=== PATIENT | female | born 1930 | race Caucasian/White ===

== ENCOUNTER 2017-01-17 11:54 | Inpatient (IN) | payer MEDICARE, MEDICAID ==
[~2017-01-17] VITALS: Ht 154.9 cm; Wt 58.6 kg
[2017-01-17] MEDS ORDERED: MIRC30SO IVP (12:58)
[2017-01-17] MEDS ORDERED: SEVE40CA PO ×2 (12:58→16:44)
[2017-01-17] MEDS ORDERED: LACT3000 PO ×2 (12:58→16:44)
[2017-01-17] MEDS ORDERED: LOMO2.5T PO ×2 (12:58→16:44)
[2017-01-17] MEDS ORDERED: STOO100C PO (12:58)
[2017-01-17] MEDS ORDERED: ZOFR4TAB3 PO (12:58)
[2017-01-17] MEDS ORDERED: LISI10TA4 PO ×2 (12:58→16:44)
[2017-01-17] MEDS ORDERED: MEGE20TA3 PO ×2 (12:58→16:44)
[2017-01-17] MEDS ORDERED: OXYC1TAB23 PO (12:58)
[2017-01-17] MEDS ORDERED: GLYC3350 PO (12:58)
[2017-01-17] MEDS ORDERED: RANI1TAB6 PO (12:58)
[2017-01-17] MEDS ORDERED: FLUTISP (12:58)
[2017-01-17] MEDS ORDERED: ECOT81TA5 PO (12:58)
[2017-01-17] MEDS ORDERED: VITA-115 PO (12:58)
[2017-01-17] MEDS ORDERED: KEFL500C17 PO (12:58)
[2017-01-17 14:22] LABS: BASO % 0.3 % (0.0-1.0); EOS % 0.1 % (0.0-3.0); IMMATURE GRANULOCYTE % 1.8 % (0-0); LYMPH # 0.6 10^3/uL (1.5-4.5); LYMPH % 5.4 % (24.0-44.0); MEAN CORPUSCULAR HEMOGLOBIN 30.8 pg (27.0-33.0); MEAN CORPUSCULAR HGB CONC 32.4 g/dl (32.0-36.5); MEAN CORPUSCULAR VOLUME 94.9 fl (80.0-96.0); MONO % 9.1 % (0.0-5.0); NEUTROPHILS # 9.2 10^3/uL (1.8-7.7); NEUTROPHILS % 83.3 % (36.0-66.0); PLATELET COUNT, AUTOMATED 277 10^3/uL (150-450); RED CELL DISTRIBUTION WIDTH 15.5 % (11.5-14.5)
[2017-01-17 14:32] LABS: INR 1.07
[2017-01-17 15:00] LABS: ALBUMIN 3.5 GM/DL (3.2-5.2); ALBUMIN/GLOBULIN RATIO 0.95 (1.00-1.93); BILIRUBIN,DIRECT 0.6 MG/DL (0.0-0.2); BILIRUBIN,TOTAL 1.2 MG/DL (0.2-1.0); CALCIUM LEVEL 9.5 MG/DL (8.8-10.2); CREATININE FOR GFR 5.54 MG/DL (0.55-1.02); GLOMERULAR FILTRATION RATE 7.8 (>32); THYROXINE (T4) 10.1 UG/DL (4.5-12.0); TOTAL PROTEIN 7.2 GM/DL (6.4-8.2)
[2017-01-17 15:15] LABS: POTASSIUM SERUM 5.2 MEQ/L (3.5-5.1)
[2017-01-17] MEDS ORDERED: MEROPENEM INJ 1 GM in D5W MINI-BAG PLUS 100 ML IV ONE (15:30)
[2017-01-17] MEDS ORDERED: methylPREDNISolone INJ 125 MG/2 ML VIAL (J2930) IV ONE (15:30)
[2017-01-17] MEDS ORDERED: COLA100C5 PO (16:44)
[2017-01-17] MEDS ORDERED: VITA-112 PO (16:44)
[2017-01-17] MEDS ORDERED: MIRA3350 PO (16:44)
[2017-01-17] MEDS ORDERED: FLON1SPR (16:44)
[2017-01-17] MEDS ORDERED: RANI150T PO (16:44)
[2017-01-17] MEDS ORDERED: [UNRECOGNIZED DRUG - CODE] IV (16:44)
[2017-01-17] MEDS ORDERED: ASPI1TAB PO (16:44)
[2017-01-17] MEDS ORDERED: ONDA4TAB6 PO (16:44)
[2017-01-17] MEDS ORDERED: PERC5TAB12 PO (16:46)
[2017-01-17] MEDS ORDERED: HEPARIN 1,000 UNITS/ML 10ML VIAL (FOR RADIOLOGY& DIALYSIS ONLY) IV ONE (18:30)
--- NOTE | 2017-01-17 19:27 | ECGEPIP ---
Stationary ECG Study [facility] - ED Test Date: 2017-01-17 Pat Name: SHELBY LORENZANA Department: Room: - Gender: F Board Turner: MARIANA : 1930 Requested By: TAMANNA HARO Order Number: [id number] Reading MD: Jh Phipps Measurements Intervals [place] Rate: 100 P: 1 ND: 169 QRS: -22 QRSD: 84 T: -21 QT: 335 QTc: 433 Interpretive Statements SINUS TACHYCARDIA LEFTWARD AXIS POSSIBLE ANTERIOR MYOCARDIAL INFARCTION, OF INDETERMINATE AGE NONSPECIFIC ST T WAVE CHANGES - INFERIOR/ANTEROSEPTAL - RULE OUT ISCHEMIA NO OLD ECG FOR COMPARISON Electronically Signed On 01-17-2017 19:27:03 EST by Jh Phipps
[2017-01-17] MEDS ORDERED: MEROPENEM INJ 1 GM in D5W MINI-BAG PLUS 100 ML IV SCH (23:30)
[2017-01-18 00:17] VITALS: BP 150/81
[2017-01-18 06:00] VITALS: BP 157/77
[2017-01-18 06:14] LABS: MEAN CORPUSCULAR HEMOGLOBIN 30.5 pg (27.0-33.0); MEAN CORPUSCULAR HGB CONC 32.6 g/dl (32.0-36.5); MEAN CORPUSCULAR VOLUME 93.7 fl (80.0-96.0); PLATELET COUNT, AUTOMATED 228 10^3/uL (150-450); RED CELL DISTRIBUTION WIDTH 15.6 % (11.5-14.5); WHITE BLOOD COUNT 5.7 10^3/uL (4.0-10.0)
--- NOTE | 2017-01-18 06:15 | REP ---
BILATERAL LOWER EXTREMITY DOPPLER VENOUS ULTRASOUND: Comparison: None. Clinical history: Lower extremity swelling, evaluate for DVT. Technique: The deep venous system of the bilateral lower extremities is evaluated with cloón scale imaging, compression ultrasound, color imaging and duplex Doppler interrogation. Examination from the groin through the popliteal fossa into the proximal calf. Findings: There is full compressibility from the common femoral vein in the inguinal region through the popliteal vein on both sides. Color imaging confirms patency throughout the course of the deep venous system. There is respiratory variation and augmented flow at all levels. Incidental note should be made of a duplicated left and mid femoral vein, an anatomic variation. Impression: 1. No Doppler venous ultrasound evidence of DVT in the bilateral lower extremities. Signed by Waldemar Garrett MD 01/17/2017 01:29 P
--- NOTE | 2017-01-18 06:16 | REP ---
CHEST, PA AND LATERAL: 01/17/2017. Clinical history: Dyspnea and cough. Findings: There are no comparison studies available at the time of this dictation. Lungs hypoinflated. Extensive interstitial markings throughout, heaviest in the left base above the diaphragm and in the perihilar regions in the right. There is fibrosis with superimposed atelectasis or infiltrate. These could certainly obscure nodules or mass, but in the setting of dyspnea and cough, pneumonitis must be suspected. There is one fairly dense nodule in the left mid lung zone and another adjacent to the hilum both suggesting granulomas. The aorta is calcified and tortuous. There are multiple left hilar granulomatous nodes evident. Heart size difficult to magistrate judge, but the left atrium is clearly enlarged with elevated mainstem bronchus. Low level of inflation noted with eventration of the diaphragms. No effusion on the lateral view. Bones severely demineralized with thoracic kyphosis and multiple wedge compression deformities and insufficiency fractures lower thoracic and mid thoracic region, poorly depicted because of the demineralization. Dextroconvex curvature on the frontal view. Impression: 1. Extensive interstitial lung changes, with heavier fibrotic changes in the bases, apical scarring, some old granulomatous disease but in the perihilar right mid lung zone superimposed atelectasis or infiltrate. I could not exclude pneumonitis. No gross effusion. Heart size difficult to magistrate judge but the left atrium is enlarged. There is a tortuous calcified aorta. Airway intact. 2. Demineralization with insufficiency fractures of multiple mid and lower thoracic vertebral levels and kyphosis. Signed by Waldemar Garrett MD 01/17/2017 07:19 P
--- NOTE | 2017-01-18 06:19 | HPE ---
DATE OF ADMISSION: 01/17/2017 CHIEF COMPLAINT: Generalized weakness. HISTORY OF PRESENT ILLNESS: The patient presented to the emergency department today via emergency medical services (EMS) for generalized weakness and feeling like she was going to fall at home. She states that this morning, the lady who comes to the assisted living facility where she resides arrived to give her communion and noticed that the patient was not able to rise out of bed. It was a joint decision to call EMS. The patient states that she started not really feeling very well while she was at dialysis on Wednesday, she started feeling an aching between her shoulder blades Wednesday night. She states that the pain between her shoulder blades would not go away, which added to her decision to come to the emergency department today. She was having some chest discomfort for the last 3-4 weeks in her midsternal area, but she thought this was from her hiatal hernia. She states that she has been having a cough on-and-off for a few weeks as well, with some phlegm but does not know the color because she has not bothered to look at it. She denies any hematemesis, fevers, chills, or night sweats. She states that she has had shortness of breath for about one week. She normally uses a walker to get around , but over the past week, she has not been able to get from her bed to the kitchen without becoming short of breath. The past 2-3 days, she has had shortness of breath at rest as well. The midsternal chest pain that she has been feeling is describes as more of a pressure, like something is sitting on her. She states that she is feeling lightheaded and weak right now, has had a decreased appetite , and has had one episode of loose stool due to taking her stool softener as she is normally constipated. REVIEW OF SYSTEMS: The patient denies problems swallowing, nausea, vomiting, numbness or tingling anywhere, fevers, chills, sweats, any recent changes in her weight, heat or cold intolerance, increased thirst, or new swelling. She states that she has no urinary symptoms because she is a dialysis patient. MEDICAL HISTORY: 1. 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 She sees Dr. Rodríguez for dialysis on Mondays, Wednesdays, and Fridays. 2. Hypertension. 3. Lumbar spinal stenosis with chronic back pain. 4. Diverticulosis. 5. Irritable bowel syndrome. 6. Shingles. MEDICATIONS: - vitamin D3 1000 units one tablet by mouth daily - Lactaid 3000 units by mouth as needed - fluticasone propionate 50 mcg/ACT suspension one spray in each nostril nasally once a day - Lomotil 2.5/0.025 mg tablet, two tablets by mouth every eight hours as needed - aspirin EC low dose 81 mg - megestrol acetate 20 mg tablet one half tablet by mouth daily for appetite - lisinopril 10 mg tablet once a day orally - Renagel 4000 mg tablets one tablet with meal by mouth three times a day - ranitidine HCl 150 mg capsule one capsule orally twice a day - MiraLAX powder 17 grams orally at bedtime - Percocet 5/325 mg tablet one-half tablet by mouth four times a day as needed, maximum daily dose of two tablets - Telma stool softener 100 mg capsules two capsules by mouth daily as needed - Zofran 4 mg tablet one tablet by mouth three times a day as needed SURGICAL HISTORY: 1. 1964, hysterectomy secondary to abnormal and heavy periods with exploratory abdominal surgery. 2. May 2011, right brachiocephalic arteriovenous (AV) fistula placed, colocutaneous fistula repair, and endoscopy/cautery for bleeding ulcer. 3. 2012, cataract surgery. 4. July 2015, fistula repair - three aneurysms. 5. December 28, endoscopy. HOSPITALIZATIONS: 1. In September 2010, for kidney failure. 2. In November 2010, hip fracture, stomach ulcer, left leg abscess, fistula repair, [facility] rehabilitation. 3. In March 2013, strained muscle left groin. ALLERGIES: 1. AVELOX (nausea). 2. BACTRIM DS (nausea and vomiting). 3. CEFTIN (nausea). 4. SULFATE (nausea and vomiting). 5. MORPHINE SULFATE (confusion). SOCIAL HISTORY: The patient is a former smoker, it has been greater than 10 years since her last cigarette. Denies recreational drug use, denies alcohol use, states that she has one cup of coffee daily. She is a retired press secretary. She is on a renal diet; [id number], low fat, low cholesterol, low phosphorus. The patient is single and lives at [facility] assisted living in [place]. Her healthcare proxy is Danuta Santamaria (niece), whose phone number is [phone]. The patient is a F[employer]. FAMILY HISTORY: Father from cardiac disease. Mother at 94 years, asthma and circulation problems. Siblings from chronic obstructive pulmonary disease (COPD) and cerebrovascular accident (CVA). PHYSICAL EXAMINATION: VITAL SIGNS: Temperature is 97.5, pulse is 100, respiratory rate is 18, blood pressure is 183/86, with a mean arterial pressure (MAP) of 118, pulse oximetry 95% on four liters of oxygen via nasal cannula. GENERAL: The patient is tired appearing but cooperative and responds to questions appropriately. She is hard of hearing. The patient did have conversational dyspnea. HEENT: Pupils equal, round, and reactive to light bilaterally. Mucous membranes are moist. There is no nasal turbinate erythema or exudates. Posterior pharynx is fee of erythema or exudates. NECK: Bilateral jugular venous distention (JVD) appreciated, no carotid bruits, supple and nontender. LUNGS: Diminished breath sounds appreciated bilaterally. No wheezing, rhonchi or rales. HEART: Mildly tachycardic, no murmurs, gallops, or rubs appreciated. ABDOMEN: Normal active bowel sounds appreciated, nontender to palpation, no organomegaly. EXTREMITIES: AV fistula noted on the right upper extremity, patent. Bilateral pedal edema is noted in the lower extremities. There is some mild tenderness to palpation along the anterior aspect of the shins. Good pulses are palpated in all four extremities. BACK: No costovertebral angle tenderness, straight, no abnormalities. LABORATORY DATA: CBC: White blood cells 11, hemoglobin 10.8, hematocrit 33.3, platelets 277, immature granulocyte 1.8, neutrophils 83.3, lymphocytes 5.4, monocytes 9.1. Chemistry: Sodium 137, potassium 5.2, chloride 99, carbon dioxide 25, BUN 64, creatinine 5.54, fasting glucose 114, lactic acid 2.8, calcium 9.5, total bilirubin 1.2, direct bilirubin 0.6, AST 62, al6 52, alkaline phosphatase 159, total creatine-kinase 62, CK-MB 2.8, CK-MB relative index 4.51, troponin 0.38. CRP 10.2, pro-BNP 95,445, total protein 7.2, albumin 3.5, TSH 3.18, T4 10.1. Coagulation: PT 14, INR 1.07. MICROBIOLOGY: Blood cultures pending. RSV negative. IMAGING: Bilateral Duplex ultrasound showed no Doppler venous ultrasound evidence of DVT in the bilateral lower extremities. Chest x-ray showed extensive interstitial lung changes, heavier fibrotic changes in the bases, apical scarring, old granulomatous disease, but in the perihilar right mid-lung zone superimposed atelectasis or infiltrate. Could not exclude pneumonitis. No gross effusion. Heart size was difficult to clearing inspector but the left atrium is enlarged. Tortuous calcified aorta. EKG: Sinus tachycardia with a rate of 100 beats per minute. Compared to EKG from 06/01/2011, no significant changes were noted. IMPRESSION: Ruthie Nelson is an 87-year-old female presenting to the emergency department for generalized weakness. Subsequently, she is found to be in heart failure with a pro-brain natriuretic peptide (pro-BNP) of 95,445. She is an end-stage renal disease patient who sees Dr. Rodríguez, who has already been consulted. We will be admitting to the medical/surgical floor and dialyzing her tonight. PLAN: 1. Suspected pneumonitis. With a white count of 11.0 and chest x-ray showing bilateral infiltrates, pneumonitis could not be excluded. We will be continuing her on meropenem 1 gram every eight hours for seven days. 2. End-stage renal disease. The patient is currently a patient of Dr. Rodríguez, and receives dialysis on Wednesday, Wednesday, and Wednesday. He has been consulted and will dialyze the patient tonight. 3. Heart failure. Her pro-BNP is 95,445. I have ordered an echocardiogram to distinguish what her ejection fraction is. This may be secondary to volume overload from her end-stage renal disease. 4. Hypertension, continue home medications. 5. Lumbar spinal stenosis with chronic back pain. Continue home medications. 6. Diverticulosis and irritable bowel syndrome. Will hold Lomotil and megestrol. My preceptor for this patient encounter was Dr. Landon Maddox. The preceptor was physically present in the building during the encounter and was fully available as needed. All aspects of the patient interview, examination, medical decision making process, and medical care plan development were reviewed and approved by the preceptor. The preceptor is aware and concurs with the plan as stated in the body of this note and will attest to such by his/her co-signature. MILAGROS
[2017-01-18 06:36] LABS: ALBUMIN 3.1 GM/DL (3.2-5.2); CALCIUM LEVEL 9.4 MG/DL (8.8-10.2); CREATININE FOR GFR 4.52 MG/DL (0.55-1.02); GLOMERULAR FILTRATION RATE 9.8 (>32); PHOSPHORUS LEVEL 6.3 MG/DL (2.5-4.9); POTASSIUM SERUM 4.9 MEQ/L (3.5-5.1)
[2017-01-18] MEDS: predniSONE 20 MG TAB PO SCH (08:09)
[2017-01-18] MEDS: ASPIRIN 81 MG ENTERIC TAB PO SCH ×2 (09:00→15:27)
[2017-01-18] MEDS: HEPARIN SOD (PORCINE) 5000 UNITS/ML VIAL SQ SCH ×2 (09:00→20:30)
[2017-01-18] MEDS: guaiFENesin ER 600 MG TAB PO SCH ×2 (09:00→20:30)
[2017-01-18] MEDS: VITAMIN D 1,000 INTERNATIONAL UNITS TABLET PO SCH ×2 (09:00→15:27)
[2017-01-18] MEDS ORDERED: FLUTICASONE PROP 0.05% NASAL SPRAY 16 GM (FLONASE) PRN (09:30)
[2017-01-18] MEDS ORDERED: DOCUSATE SODIUM 100 MG CAP PO PRN (09:30)
[2017-01-18] MEDS ORDERED: LOMOTIL 2.5MG/0.025MG TABLET PO PRN (09:30)
[2017-01-18] MEDS ORDERED: MIRALAX *UNIT DOSE* 17GM PACKET PO PRN (09:30)
--- NOTE | 2017-01-18 09:54 | IPNPDOC ---
Subjective Date Seen The patient was seen on 01/18/17. Subjective Chief Complaint/HPI The patient is a 87-year-old female admitted with a reason for visit of Esrd On Dialysis; Heart Failure. Events since last encounter Dialyzed with -2.5L yesterday. c/o leg and LBP due to sitting on monitor leads yesterday. continues with cough and mucous production, with difficulty expectorating. Constitutional: Denies: Chills, Fever, Night Sweats Skin: Denies: Rash, Lesions, Breakdown Pulmonary: Denies: Dyspnea, Cough Cardiovascular: Denies: Chest Pain, Palpitations, Orthopnea, Paroxysmal Noc. Dyspnea, Lt Headedness Gastrointestinal: Denies: Nausea, Vomiting, Abdominal Pain, Diarrhea, Constipation Genitourinary: Denies: Dysuria, Frequency, Incontinence, Retention Objective Physical Examination General Exam: Positive: Alert, No Acute Distress ENT Exam: Positive: Atraumatic, Mucous membr. moist/pink, Pharynx Normal Neck Exam: Positive: Supple, Negative: JVD, thyromegaly Chest Exam: Positive: Clear to auscultation, Normal air movement Heart Exam: Positive: Rate Normal, Regular Rhythm, Normal S1, Normal S2, Negative: Murmurs, Rubs Abdomen Exam: Positive: Normal bowel sounds, Soft, Negative: Tenderness, Hepatospenomegaly Extremity Exam: Positive: Edema (2+ boggy) Assessment /Plan Problems (1) Pneumonitis Status: Acute Problem Text: Received 1 dose of IV solumedrol. Now on Prednisone 40 mg po daily. Monitor. Add on Mucinex. (2) End stage renal disease on dialysis Status: Chronic Problem Text: Nephrology following and managing HD needs. (3) Hypoxia Status: Acute (4) Elevated brain natriuretic peptide (BNP) level Status: Acute Problem Text: In presence of BLE edema. Echo ordered. Plan/VTE VTE Prophylaxis Ordered?: Yes (Heparin) Plan Therapy: PT VS, I&O, 24H, Fishbone Vital Signs/I&O Vital Signs Date Time Temp Pulse Resp B/P (MAP) Pulse Ox O2 Delivery O2 Flow Rate FiO2 01/18/17 06:00 97.8 80 16 157/77 (103) 92 01/18/17 00:17 Nasal Cannula 2.0 I&O- Last 24 Hours up to 6 AM 01/19/17 06:00 Intake Total 240 ml Balance 240 ml Laboratory Data 24H LABS Laboratory Tests 2 01/17/17 13:53: Anion Gap 13, Glomerular Filtration Rate 7.8L, Calcium Level 9.5, Aspartate Amino Transf (AST/SGOT) 62H, Alanine Aminotransferase (ALT/SGPT) 52, Alkaline Phosphatase 169H, Total Bilirubin 1.2H, Direct Bilirubin 0.6H, Total Creatine Kinase 62, Creatine Kinase MB 2.8, Creatine Kinase MB Relative Index 4.51H, Troponin I 0.38H, C-Reactive Protein, Quantitative 10.20H, CK-Tnd-O-Type Natriuretic Peptide 24545R, Total Protein 7.2, Albumin 3.5, Albumin/Globulin Ratio 0.95L, Thyroid Stimulating Hormone (TSH) 3.180, Thyroxine (T4) 10.1 01/17/17 14:10: Lactic Acid Level 2.8*H 01/17/17 14:11: Immature Granulocyte % (Auto) 1.8H, White Blood Count 11.0H, Red Blood Count 3.51L, Hemoglobin 10.8L, Hematocrit 33.3L, Mean Corpuscular Volume 94.9, Mean Corpuscular Hemoglobin 30.8, Mean Corpuscular Hemoglobin Concent 32.4, Red Cell Distribution Width 15.5H, Platelet Count 277, Neutrophils (%) (Auto) 83.3H, Lymphocytes (%) (Auto) 5.4L, Monocytes (%) (Auto) 9.1H, Eosinophils (%) (Auto) 0.1, Basophils (%) (Auto) 0.3, Neutrophils # (Auto) 9.2H, Lymphocytes # (Auto) 0.6L, Monocytes # (Auto) 1.0H, Eosinophils # (Auto) 0.0, Basophils # (Auto) 0.0 , Immature Granulocyte # (Auto) 0.2H, Nucleated Red Blood Cells % (auto) 0.0, Prothrombin Time 14.0, Prothromb Time International Ratio 1.07 01/17/17 19:41: Lactic Acid Followup at 4 Hours 1.0 01/18/17 05:54: Nucleated Red Blood Cells % (auto) 0.0, Blood Urea Nitrogen 49H, Creatinine 4.52H, Sodium Level 138, Potassium Level 4.9, Chloride Level 100, Carbon Dioxide Level 28, Anion Gap 10, Glomerular Filtration Rate 9.8L, Calcium Level 9.4, Phosphorus Level 6.3H, Albumin 3.1L CBC/BMP Laboratory Tests 01/17/17 13:53 01/17/17 14:11 Red Blood Count 3.51 L, Mean Corpuscular Volume 94.9, Mean Corpuscular Hemoglobin 30.8, Mean Corpuscular Hemoglobin Concent 32.4, Red Cell Distribution Width 15.5 H, Neutrophils (%) (Auto) 83.3 H, Lymphocytes (%) (Auto ) 5.4 L, Monocytes (%) (Auto) 9.1 H, Eosinophils (%) (Auto) 0.1, Basophils (%) ( Auto) 0.3, Neutrophils # (Auto) 9.2 H, Lymphocytes # (Auto) 0.6 L, Monocytes # ( Auto) 1.0 H, Eosinophils # (Auto) 0.0, Basophils # (Auto) 0.0 01/18/17 05:54 Red Blood Count 3.31 L, Mean Corpuscular Volume 93.7, Mean Corpuscular Hemoglobin 30.5, Mean Corpuscular Hemoglobin Concent 32.6, Red Cell Distribution Width 15.6 H, Anion Gap 10 Microbiology Microbiology 01/17/17 Blood Culture, Received Pending 01/17/17 Blood Culture, Received Pending 01/17/17 Respiratory Virus Panel (PCR) (TD) - Final, Complete Theresa Hitchcock PASTORAL WORKER Jan 18, 2017 09:54
[2017-01-18] MEDS ORDERED: HEPARIN 1,000 UNITS/ML 10ML VIAL (FOR RADIOLOGY& DIALYSIS ONLY) IV ONE (12:15)
[2017-01-18] MEDS: SEVELAMER HYDROCHLORIDE 400 MG PO SCH ×2 (12:30→18:22)
[2017-01-18 14:30] VITALS: BP 130/63
--- NOTE | 2017-01-18 14:55 | CR ---
DATE OF CONSULTATION: 01/17/2017 NEPHROLOGY CONSULTATION: Landon Maddox MD. REASON FOR CONSULTATION: Pulmonary edema in this lady with end-stage renal disease. HISTORY OF PRESENT ILLNESS: Mrs. Nelson is 87-year-old female who is followed by Dr. Anthony on regular basis. She has multiple chronic medical problems including a history of end-stage renal disease. She was brought to the emergency room today due to not feeling well and shortness of breath. She also reported pain in retrosternal area. Initially, there was a question about possibility of a hiatal hernia versus pulmonary embolus. I discussed with the emergency room physician earlier who had expressed a need for CT angiogram, however, later changed their mind as her chest x-ray did show bilateral pulmonary infiltrates and possible pulmonary edema. A nephrology consultation was requested due to urgent need for dialysis. PAST MEDICAL AND SURGICAL HISTORY: Significant for 1. Hypertension. 2. Spinal stenosis. 3. Irritable bowel syndrome. 4. History of diverticulosis. 5. 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 6. Secondary hyperparathyroidism. 7. History of anemia due to end-stage renal disease. 8. Lactose intolerance. Past surgical history is significant for hysterectomy, exploratory laparotomy, right brachial cephalic arteriovenous (AV) fistula, pleural cutaneous fistula, which was repaired, endoscopic cautery for bleeding ulcer, left hip replacement, cataract surgery, history of a left hip decubitus ulcer. which has healed. MEDICATIONS: - Her current medications ordered are prednisone 40 mg daily and meropenem 500 mg every 24 hours. - She was given a dose of methylprednisone 125 mg in the emergency room. She also received a dose of meropenem 1 gram. Her home medications include the following: - aspirin 81 mg daily - vitamin D 1000 units daily - Lomotil one tablet as needed for diarrhea - Colace 100 mg as needed, constipation - Hectorol with hemodialysis - lisinopril 10 mg daily - lactase 3000 units three times a day as needed for lactose intolerance - Percocet as needed for severe pain - ranitidine 150 mg twice a day - Renagel 400 mg with meals ALLERGIES: The patient has multiple allergies which are recorded in her electronic chart. PERSONAL AND SOCIAL HISTORY: Patient has no history of smoking, alcohol or drug use. Family history is negative for end-stage renal disease. REVIEW OF SYSTEMS: She has not been feeling well for at least last several days. She denies any fever or chills. Ears, nose and throat are unremarkable. She denies any nosebleed. There is no headache or dizziness. Cardiovascular system is significant for significant dyspnea, particularly on exertion and also increased leg edema. She denies any diaphoresis but does report pressure in her chest. Respiratory system is significant for shortness of breath. There is no history of hemoptysis or pleuritic type chest pain. Gastrointestinal (GI) system is significant for decreased appetite and possible hiatal hernia. She denies any vomiting but does feel nauseated and has chronic problems with her lactose intolerance. Genitourinary () system is significant for end-stage renal disease. She denies any dysuria or hematuria. Musculoskeletal system is significant for chronic back pain with spinal stenosis and bilateral lower extremity edema. Endocrine system is significant for secondary hyperparathyroidism. She has no diabetes or thyroid problems. Hematological system is significant for chronic anemia. There is no history of easy bruising or excessive bleeding. Psychosocial system negative for depression or anxiety. Neurological system is negative for seizures. There is no history of stroke. Skin is negative for rash or ulcers. PHYSICAL EXAMINATION: Temperature 97.6 degrees Fahrenheit, heart rate 90 per minute and respiratory rate 20 per minute. Blood pressure 190/79 mmHg and oxygen saturation 94% on 4 liters oxygen. It is important to note that she does not use oxygen at home. Head is atraumatic. Neck is supple and jugular venous distention (JVD) is mildly elevated. There is no thyroid enlargement. Ears, nose and throat are unremarkable. Heart exam reveals a regular S1 and S1 with systolic murmur Grade 1/6. There is no pericardial friction rub. Lungs have bilateral rales. There is no wheezing. Abdomen is soft and nontender and without palpable organomegaly. Bowel sounds are normal. Extremities have no cyanosis or clubbing. Musculoskeletal system is significant for at least 2+ lower extremity edema. There is no edema on upper extremities. Neurologically, she is awake, alert and oriented times three. LABORATORY DATA: Her WBC count is 11.0, hemoglobin 10.8 and hematocrit 33.3. Platelets 277. Sodium 137 and potassium 5.2. BUN 64 and creatinine 5.54. Lactic acid 2.8. AST 62, ALT 52 and total bilirubin 1.2. Troponin is 0.38. A proBNP level 95,445. TSH level 3.18. Chest x-ray showed bilateral pulmonary infiltrates and interstitial edema. PROBLEMS: 1. Shortness of breath. Patient is volume overloaded, which is evidenced by peripheral edema and she reports that she did have her last dialysis on Wednesday. However, she did not feel well even on Wednesday. She reports no change in her dry weight recently. Today our plan is to perform urgent dialysis for at least 2 hours and try to remove about 2-2.5 liters of fluid. Further dialysis will be arranged again tomorrow morning. I have already called the dialysis nurse and emergent dialysis is being arranged for this evening. 2. Hyperkalemia. This is mild and likely to correct with hemodialysis. She does not need Kayexalate. 3. Lactic acidosis. This is most likely related to pulmonary edema and likely to improve once her volume status improves. She does not seem to have any evidence for sepsis. 4. End-stage renal disease. Patient is regularly dialyzed on Wednesday, Wednesday and Wednesday. She will have 2 hours of emergent dialysis today and then regular dialysis treatment tomorrow. 5. Uncontrolled hypertension. This is most likely related to volume overload and her respiratory distress. It is likely to improve with volume removal and hemodialysis. Her medications will be adjusted after correcting her volume status. 6. Anemia. Her anemia is mild and stable and does not need any intervention. 7. Chest discomfort. Most likely related to uncontrolled hypertension and pulmonary edema. We will see how she feels after she is dialyzed and volume corrected. I thank you for involving me in the care of Mrs. Nelson. I will follow her along with you.
[2017-01-18] MEDS: MEROPENEM INJ 500 MG in D5W MINI-BAG PLUS 100 ML IV SCH (18:38)
[2017-01-18] MEDS: LISINOPRIL 10 MG TAB PO SCH (20:30)
[2017-01-18 22:00] VITALS: BP 125/60
[2017-01-19 06:00] VITALS: BP 139/62
[2017-01-19 06:13] LABS: MEAN CORPUSCULAR HGB CONC 31.6 g/dl (32.0-36.5); MEAN CORPUSCULAR VOLUME 94.9 fl (80.0-96.0); PLATELET COUNT, AUTOMATED 263 10^3/uL (150-450); RED CELL DISTRIBUTION WIDTH 15.8 % (11.5-14.5); WHITE BLOOD COUNT 10.5 10^3/uL (4.0-10.0)
[2017-01-19 06:41] LABS: ALBUMIN 2.9 GM/DL (3.2-5.2); CALCIUM LEVEL 9.5 MG/DL (8.8-10.2); CREATININE FOR GFR 3.73 MG/DL (0.55-1.02); GLOMERULAR FILTRATION RATE 12.3 (>32); PHOSPHORUS LEVEL 4.5 MG/DL (2.5-4.9); POTASSIUM SERUM 4.6 MEQ/L (3.5-5.1)
[2017-01-19] MEDS: ASPIRIN 81 MG ENTERIC TAB PO SCH (08:12)
[2017-01-19] MEDS: predniSONE 20 MG TAB PO SCH (08:12)
[2017-01-19] MEDS: VITAMIN D 1,000 INTERNATIONAL UNITS TABLET PO SCH (08:12)
[2017-01-19] MEDS: SEVELAMER HYDROCHLORIDE 400 MG PO SCH ×3 (08:12→18:02)
[2017-01-19] MEDS: guaiFENesin ER 600 MG TAB PO SCH ×2 (08:12→20:46)
[2017-01-19] MEDS: HEPARIN SOD (PORCINE) 5000 UNITS/ML VIAL SQ SCH ×2 (08:12→20:46)
--- NOTE | 2017-01-19 08:55 | IPN ---
DATE OF VISIT: 01/18/2017 Mrs. Nelson was admitted last evening with shortness of breath and found to have pulmonary edema. She underwent a short emergent hemodialysis last evening, and 2.5 liters of fluid was removed. She is feeling better today. However, still short of breath. She denies any chest pain. She does have some discomfort in her epigastric area and feels that it is her hiatal hernia. She denies any nausea or vomiting and did eat better. She denies any fever or chills. On physical examination, temperature is 98.6 degrees Fahrenheit, heart rate 78 per minute, and respiratory rate 16 per minute. Blood pressure 130/63 mmHg and oxygen saturation 95%. Head is atraumatic. Neck veins are difficult to be assessed but do not look significantly distended. Ears, nose, and throat are unremarkable. Pupils are equal and reactive to light and sclerae anicteric. Heart sounds are regular and lungs with good breath sounds at bases. There are a few bibasilar rales. Abdomen is soft and nontender. Bowel sounds are normal. Extremities have no cyanosis or clubbing. Musculoskeletal system has 2+ edema on her legs bilaterally. Neurologically, she is awake, alert, and oriented times three. Skin has no rash or ulcers. Today's laboratories show WBC count 5.7, hemoglobin 10.1, and hematocrit 31.0. Sodium is 138 and potassium 4.9. BUN 49 and creatinine 4.52. Calcium level 9.4 and phosphorus 6.3. Albumin 3.1. PROBLEMS: 1. Shortness of breath. The patient had pulmonary edema due to volume overload. We removed 2.5 liters fluid yesterday evening with hemodialysis, and today we are planning to remove another 3 liters. It remains to be seen how she tolerates. Her dyspnea has already improved significantly, and it is likely to improve further after this dialysis today. 2. End-stage renal disease. The patient is regularly dialyzed on Wednesday, Wednesday, and Wednesday schedule, and we are dialyzing her for 3 hours today. She is tolerating her dialysis treatment very well. 3. Hyperphosphatemia. This is a chronic issue. We have started Renagel 400 mg three times a day with meals, and she will remain on low-phosphorus diet. 4. Hyperkalemia. Potassium level was slightly elevated on admission and has already corrected. 5. Anemia. Her anemia is chronic and stable. No acute intervention is indicated.
--- NOTE | 2017-01-19 10:05 | IPNPDOC ---
Subjective Date Seen The patient was seen on 01/19/17. Subjective Chief Complaint/HPI The patient is a 87-year-old female admitted with a reason for visit of Esrd On Dialysis; Heart Failure. Events since last encounter Continues to improve after HD. Denies SOB. OOB with nursing. PT to eval today. K -pad ordered for LBP. Constitutional: Denies: Chills, Fever, Night Sweats Skin: Denies: Rash, Lesions, Breakdown Pulmonary: Denies: Dyspnea, Cough Cardiovascular: Denies: Chest Pain, Palpitations, Orthopnea, Paroxysmal Noc. Dyspnea, Lt Headedness Gastrointestinal: Denies: Nausea, Vomiting, Abdominal Pain, Diarrhea, Constipation Genitourinary: Denies: Dysuria, Frequency, Incontinence, Retention Objective Physical Examination General Exam: Positive: Alert, No Acute Distress ENT Exam: Positive: Atraumatic, Mucous membr. moist/pink, Pharynx Normal Neck Exam: Positive: Supple, Negative: JVD, thyromegaly Chest Exam: Positive: Clear to auscultation, Normal air movement Heart Exam: Positive: Rate Normal, Regular Rhythm, Normal S1, Normal S2, Negative: Murmurs, Rubs Abdomen Exam: Positive: Normal bowel sounds, Soft, Negative: Tenderness, Hepatospenomegaly Extremity Exam: Positive: Edema (trace) Assessment /Plan Problems (1) Pneumonitis Status: Acute Problem Text: Received 1 dose of IV solumedrol. Now on Prednisone 40 mg po daily. Monitor. Add on Mucinex. (2) End stage renal disease on dialysis Status: Chronic Problem Text: Nephrology following and managing HD needs. (3) Hypoxia Status: Acute Problem Text: wean off of oxygen keep sats 88-92% (4) Elevated brain natriuretic peptide (BNP) level Status: Acute Problem Text: In presence of BLE edema. Echo ordered. Plan/VTE VTE Prophylaxis Ordered?: Yes (Heparin) Plan Therapy: PT VS, I&O, 24H, Fishbone Vital Signs/I&O Vital Signs Date Time Temp Pulse Resp B/P (MAP) Pulse Ox O2 Delivery O2 Flow Rate FiO2 01/19/17 06:00 97.7 72 17 139/62 (87) 97 Nasal Cannula 2.0 97.7 Laboratory Data 24H LABS Laboratory Tests 2 01/19/17 05:35: Nucleated Red Blood Cells % (auto) 0.2H, Blood Urea Nitrogen 45H, Creatinine 3.73H, Sodium Level 137, Potassium Level 4.6, Chloride Level 97L, Carbon Dioxide Level 32, Anion Gap 8, Glomerular Filtration Rate 12.3L, Calcium Level 9.5, Phosphorus Level 4.5#, Albumin 2.9L CBC/BMP Laboratory Tests 01/19/17 05:35 Red Blood Count 3.53 L, Mean Corpuscular Volume 94.9, Mean Corpuscular Hemoglobin 30.0, Mean Corpuscular Hemoglobin Concent 31.6 L, Red Cell Distribution Width 15.8 H, Anion Gap 8 Microbiology Microbiology 01/17/17 Blood Culture - Preliminary, Resulted No growth after 24 hours . All specim... 01/17/17 Blood Culture - Preliminary, Resulted No growth after 24 hours . All specim... 01/17/17 Respiratory Virus Panel (PCR) (TD) - Final, Complete Theresa Hitchcock TAXONOMY TEACHER Jan 19, 2017 10:05
[2017-01-19 14:02] VITALS: BP 130/70
[2017-01-19] MEDS: MEROPENEM INJ 500 MG in D5W MINI-BAG PLUS 100 ML IV SCH (18:02)
[2017-01-19] MEDS: ONDANSETRON 4 MG ORAL DISINTEGRATING TAB (S0181) PO PRN (18:02)
--- NOTE | 2017-01-19 20:21 | ECHO ---
DATE OF PROCEDURE: 01/19/2017 REFERRING PHYSICIAN: Callie Stokes. Indication: congestive heart failure. The patient measures 155 cm and weighs 65 kg. DIMENSIONS: IVS: 0.8 LV: 4.3 LVPW: 0.9 LA: 3.9 Aorta: 2.5 FINDINGS: The study is of acceptable technical quality. Left ventricle is of normal size and normal systolic function with estimated ejection fraction (EF) approximately 70%. Right ventricle is normal size and systolic function. Left atrium is at least mildly enlarged. Right atrium is likely normal size. Aortic valve is sclerotic but otherwise has preserved mobility. Mitral valve exhibits degenerative abnormalities with prominent mitral annular calcifications. Mobility of leaflets is preserved. Tricuspid and pulmonic valves appear normal. No pericardial effusion is noted. Inferior vena cava was not well seen. Aortic root is normal. Aortic arch and abdominal aorta were not well seen. Doppler interrogation of aortic valve reveals no significant stenosis or insufficiency. There is approximately mild to moderate mitral insufficiency and mild tricuspid insufficiency. Calculated pulmonary artery pressure is in 40s corresponding to moderate pulmonary hypertension. Trace pulmonic insufficiency seen. Mitral inflow pattern and tissue Doppler imaging of mitral annulus reveal grade 1 diastolic dysfunction (mitral E velocity is 126 cm/s, A velocity 163 cm/s, E prime septal 6.2 and E prime lateral 6.0 cm/s). CONCLUSIONS: 1. Study is of acceptable technical quality. 2. Normal left ventricular (LV) size, systolic function. Grade 1 diastolic dysfunction. 3. Degenerative abnormalities of aortic valve but without significant stenosis or insufficiency. 4. Degenerative abnormalities of mitral valve resulting in mild to moderate mitral insufficiency. 5. Unable to estimate pulmonary artery pressure but likely moderate pulmonary hypertension. COMMENTS: Subacute bacterial endocarditis (SBE) prophylaxis is not recommended. MTDD
[2017-01-19] MEDS: LISINOPRIL 10 MG TAB PO SCH (20:47)
--- NOTE | 2017-01-19 21:52 | IPN ---
DATE: 01/19/2017 Mrts. Nelson is seen this morning on her bedside. She is feeling much better today, and her dyspnea and leg edema have improved. She was admitted with severe weakness and shortness of breath. She was in pulmonary edema and underwent to hemodialysis treatments back to back. We have removed a total of about 5.5 liters of fluid so far. She denies any chest pain, palpitations, fever, or chills. She has no nausea or vomiting. PHYSICAL EXAMINATION: Temperature is 97.7 degrees Fahrenheit, heart rate 72 per minute, respiratory rate 18 per minute, blood pressure 139/62 mm of mercury, and oxygen saturation 97% on 2 liters oxygen. Head is atraumatic. Neck is supple and without jugular venous distention (JVD) or thyroid enlargement. Ears, nose and throat are unremarkable. Heart exam reveals regular S1 and S2 with systolic murmur, grade 1/6. Lungs sound much clearer to auscultation today bilaterally. Abdomen soft and nontender, and bowel sounds are normal. Extremities have no cyanosis or clubbing. Right arm arteriovenous (AV) fistula is patent. Musculoskeletal system reveals significant improvement in her leg edema. Neurologically she is awake, alert, and oriented times three. Skin has no rash or ulcers. Her labs today showed a WBC count 10.5, hemoglobin 10.6, and hematocrit 33.5. Platelets 263. Sodium 137 and potassium 4.6. BUN 45 and creatinine 3.73. Calcium level is 9.5 and phosphorus 4.5. Blood cultures are negative so far. Medications are reviewed and no changes are noted over last 24 hours. She is currently on prednisone 40 mg daily and no intravenous steroids. She remains on meropenem 500 mg every 24 hours. PROBLEMS: 1. Shortness of breath. The patient had mostly volume overload, and her dyspnea has improved with 5.5 liters fluid removal with two dialysis treatments. I strongly recommend to cut down her prednisone dose relatively quickly. I am not certain if she needs to continue with antibiotics at this point. 2. End-stage renal disease. The patient underwent hemodialysis yesterday. We will plan to dialyze her again today for her regular treatment. 3. Hypertension. Blood pressure is well controlled on her current antihypertensive medications, which will be continued. 4. Anemia. Anemia is mild and stable and does not need any intervention. 5. Hyperparathyroidism. She is doing well, and her phosphorus level has improved to normal range. The patient will continue with Renagel 400 mg three times a day with meals. 6. Generalized weakness. The patient does not feel that she is able to get up and walk by herself. She will need physical therapy evaluation.
[2017-01-19 22:00] VITALS: BP 148/67
[2017-01-20 06:00] VITALS: BP 144/72
[2017-01-20] MEDS: guaiFENesin ER 600 MG TAB PO SCH ×2 (06:06→20:26)
[2017-01-20] MEDS: HEPARIN SOD (PORCINE) 5000 UNITS/ML VIAL SQ SCH ×2 (06:06→20:26)
[2017-01-20] MEDS: predniSONE 20 MG TAB PO SCH (06:06)
[2017-01-20] MEDS: VITAMIN D 1,000 INTERNATIONAL UNITS TABLET PO SCH (06:06)
[2017-01-20] MEDS: ASPIRIN 81 MG ENTERIC TAB PO SCH (06:06)
[2017-01-20] MEDS: ONDANSETRON 4 MG ORAL DISINTEGRATING TAB (S0181) PO PRN (06:08)
[2017-01-20 06:43] LABS: MEAN CORPUSCULAR HEMOGLOBIN 29.9 pg (27.0-33.0); MEAN CORPUSCULAR HGB CONC 31.5 g/dl (32.0-36.5); MEAN CORPUSCULAR VOLUME 95.2 fl (80.0-96.0); PLATELET COUNT, AUTOMATED 277 10^3/uL (150-450); RED CELL DISTRIBUTION WIDTH 15.7 % (11.5-14.5); WHITE BLOOD COUNT 11.1 10^3/uL (4.0-10.0)
[2017-01-20] MEDS: SEVELAMER HYDROCHLORIDE 400 MG PO SCH ×3 (06:51→17:33)
[2017-01-20 07:05] LABS: ALBUMIN 3.3 GM/DL (3.2-5.2); CALCIUM LEVEL 9.8 MG/DL (8.8-10.2); CREATININE FOR GFR 5.71 MG/DL (0.55-1.02); GLOMERULAR FILTRATION RATE 7.5 (>32); PHOSPHORUS LEVEL 5.2 MG/DL (2.5-4.9)
[2017-01-20 07:07] LABS: POTASSIUM SERUM 5.3 MEQ/L (3.5-5.1)
[2017-01-20 09:35] VITALS: BP_SYST 157; BP_DIAS 73; BP_DIAS 75
[2017-01-20] MEDS ORDERED: HEPARIN 1,000 UNITS/ML 10ML VIAL (FOR RADIOLOGY& DIALYSIS ONLY) IV ONE (10:45)
--- NOTE | 2017-01-20 11:03 | IPNPDOC ---
Subjective Date Seen The patient was seen on 01/20/17. Subjective Chief Complaint/HPI The patient is a 87-year-old female admitted with a reason for visit of Esrd On Dialysis; Heart Failure. Events since last encounter Planning on HD today. noting hypoxia in the 70s on exertion. Patient agreeable to home oxygen. General: Denies: ROS Unobtainable, Chills, Night Sweats, Fatigue, Malaise, Normal Appetite, Other Symptoms ENT: Denies: Head Aches, Ear Pain, Dysphagia Pulmonary: Reports: Other Symptoms (hypoxia with exertion), Denies: Dyspnea, Cough Cardiovascular: Denies: Chest Pain, Palpitations, Orthopnea, Paroxysmal Noc. Dyspnea, Lt Headedness Musculoskeletal: Reports: Back Pain (mild. relieved with heat application) Objective Physical Examination General Exam: Positive: Alert, No Acute Distress ENT Exam: Positive: Atraumatic, Mucous membr. moist/pink, Pharynx Normal Neck Exam: Positive: Supple, Negative: JVD, thyromegaly Chest Exam: Positive: Clear to auscultation, Normal air movement Heart Exam: Positive: Rate Normal, Regular Rhythm, Normal S1, Normal S2, Negative: Murmurs, Rubs Abdomen Exam: Positive: Normal bowel sounds, Soft, Negative: Tenderness, Hepatospenomegaly Extremity Exam: Negative: Edema Assessment /Plan Problems (1) Pneumonitis Status: Acute Problem Text: 01/20/17: symptoms resolved after dialysis and removal of 5500 ml fluids. Will stop prednisone and Meropenem. monitor. Anticipate DC home in am. Received 1 dose of IV solumedrol. Now on Prednisone 40 mg po daily. Monitor. Add on Mucinex. (2) End stage renal disease on dialysis Status: Chronic Problem Text: Nephrology following and managing HD needs. (3) Hypoxia Status: Acute Problem Text: wean off of oxygen keep sats 88-92% (4) Elevated brain natriuretic peptide (BNP) level Status: Acute Problem Text: CONCLUSIONS: 1. Study is of acceptable technical quality. 2. Normal left ventricular (LV) size, systolic function. Grade 1 diastolic dysfunction. 3. Degenerative abnormalities of aortic valve but without significant stenosis or insufficiency. 4. Degenerative abnormalities of mitral valve resulting in mild to moderate mitral insufficiency. 5. Unable to estimate pulmonary artery pressure but likely moderate pulmonary hypertension. EF 70% In presence of BLE edema. Echo ordered. Plan/VTE VTE Prophylaxis Ordered?: Yes (Heparin) Plan Therapy: PT VS, I&O, 24H, Fishbone Vital Signs/I&O Vital Signs Date Time Temp Pulse Resp B/P (MAP) Pulse Ox O2 Delivery O2 Flow Rate FiO2 01/20/17 06:00 98.5 70 15 144/72 (96) 98 Nasal Cannula 2.0 I&O- Last 24 Hours up to 6 AM 01/21/17 06:00 Intake Total 0 ml Balance 0 ml Laboratory Data 24H LABS Laboratory Tests 2 01/20/17 06:33: Blood Urea Nitrogen 77#H, Creatinine 5.71#H, Sodium Level 133L, Potassium Level 5.3H, Chloride Level 96L, Carbon Dioxide Level 27, Anion Gap 10, Glomerular Filtration Rate 7.5L, Calcium Level 9.8, Phosphorus Level 5.2H, Albumin 3.3 01/20/17 06:34: Nucleated Red Blood Cells % (auto) 0.0 CBC/BMP Laboratory Tests 01/20/17 06:33 Anion Gap 10 01/20/17 06:34 Red Blood Count 3.94 L, Mean Corpuscular Volume 95.2, Mean Corpuscular Hemoglobin 29.9, Mean Corpuscular Hemoglobin Concent 31.5 L, Red Cell Distribution Width 15.7 H Microbiology Microbiology 01/17/17 Blood Culture - Preliminary, Resulted No Growth after 48 hours. All Specime... 01/17/17 Blood Culture - Preliminary, Resulted No Growth after 48 hours. All Specime... 01/17/17 Respiratory Virus Panel (PCR) (TD) - Final, Complete Theresa Hitchcock COIL SHAPER Jan 20, 2017 11:03
[2017-01-20] MEDS: LISINOPRIL 10 MG TAB PO SCH (20:29)
[2017-01-20 22:00] VITALS: BP 118/59
[2017-01-21 06:00] VITALS: BP 129/58
[2017-01-21 06:33] LABS: MEAN CORPUSCULAR HEMOGLOBIN 30.5 pg (27.0-33.0); MEAN CORPUSCULAR HGB CONC 31.6 g/dl (32.0-36.5); MEAN CORPUSCULAR VOLUME 96.5 fl (80.0-96.0); PLATELET COUNT, AUTOMATED 247 10^3/uL (150-450); RED CELL DISTRIBUTION WIDTH 15.9 % (11.5-14.5); WHITE BLOOD COUNT 10.1 10^3/uL (4.0-10.0)
[2017-01-21 06:58] LABS: ALBUMIN 2.6 GM/DL (3.2-5.2); CREATININE FOR GFR 4.44 MG/DL (0.55-1.02); POTASSIUM SERUM 4.7 MEQ/L (3.5-5.1)
[2017-01-21] MEDS: VITAMIN D 1,000 INTERNATIONAL UNITS TABLET PO SCH (08:53)
[2017-01-21] MEDS: guaiFENesin ER 600 MG TAB PO SCH ×2 (08:53→20:45)
[2017-01-21] MEDS: ASPIRIN 81 MG ENTERIC TAB PO SCH (08:53)
[2017-01-21] MEDS: SEVELAMER HYDROCHLORIDE 400 MG PO SCH ×3 (08:53→18:10)
[2017-01-21] MEDS: HEPARIN SOD (PORCINE) 5000 UNITS/ML VIAL SQ SCH ×2 (08:59→20:45)
[2017-01-21 10:44] VITALS: BP 120/54
--- NOTE | 2017-01-21 11:54 | IPNPDOC ---
Subjective Date Seen The patient was seen on 01/21/17. Subjective Chief Complaint/HPI The patient is a 87-year-old female admitted with a reason for visit of Esrd On Dialysis; Heart Failure. Events since last encounter Continues with weakness. Has not passed PT for DC to home. ENT: Denies: Head Aches, Ear Pain, Dysphagia Skin: Denies: Rash, Lesions, Breakdown Pulmonary: Denies: Dyspnea, Cough Cardiovascular: Denies: Chest Pain, Palpitations, Orthopnea, Paroxysmal Noc. Dyspnea, Lt Headedness Gastrointestinal: Denies: Nausea, Vomiting, Abdominal Pain, Diarrhea, Constipation Objective Physical Examination General Exam: Positive: Alert, No Acute Distress ENT Exam: Positive: Atraumatic, Mucous membr. moist/pink, Pharynx Normal Neck Exam: Positive: Supple, Negative: JVD, thyromegaly Chest Exam: Positive: Clear to auscultation, Normal air movement Heart Exam: Positive: Rate Normal, Regular Rhythm, Normal S1, Normal S2, Negative: Murmurs, Rubs Abdomen Exam: Positive: Normal bowel sounds, Soft, Negative: Tenderness, Hepatospenomegaly Extremity Exam: Negative: Edema Assessment /Plan Problems (1) Pneumonitis Status: Acute Problem Text: Continue with PT to improve strengthening. Anticipated DC of 01/2901/20/17: symptoms resolved after dialysis and removal of 5500 ml fluids. Will stop prednisone and Meropenem. monitor. Anticipate DC home in am. Received 1 dose of IV solumedrol. Now on Prednisone 40 mg po daily. Monitor. Add on Mucinex. (2) End stage renal disease on dialysis Status: Chronic Problem Text: Nephrology following and managing HD needs. (3) Hypoxia Status: Acute Problem Text: wean off of oxygen keep sats 88-92% (4) Elevated brain natriuretic peptide (BNP) level Status: Acute Problem Text: CONCLUSIONS: 1. Study is of acceptable technical quality. 2. Normal left ventricular (LV) size, systolic function. Grade 1 diastolic dysfunction. 3. Degenerative abnormalities of aortic valve but without significant stenosis or insufficiency. 4. Degenerative abnormalities of mitral valve resulting in mild to moderate mitral insufficiency. 5. Unable to estimate pulmonary artery pressure but likely moderate pulmonary hypertension. EF 70% In presence of BLE edema. Echo ordered. Plan/VTE VTE Prophylaxis Ordered?: Yes (Heparin) Plan Therapy: PT VS, I&O, 24H, Fishbone Vital Signs/I&O Vital Signs Date Time Temp Pulse Resp B/P (MAP) Pulse Ox O2 Delivery O2 Flow Rate FiO2 01/21/17 10:44 97.9 80 16 120/54 (76) 93 Room Air 01/21/17 06:00 2.0 I&O- Last 24 Hours up to 6 AM 01/22/17 06:00 Intake Total 120 ml Balance 120 ml Laboratory Data 24H LABS Laboratory Tests 2 01/21/17 06:07: Nucleated Red Blood Cells % (auto) 0.2H, Blood Urea Nitrogen 53H, Creatinine 4.44H, Sodium Level 138, Potassium Level 4.7, Chloride Level 102, Carbon Dioxide Level 27, Anion Gap 9, Glomerular Filtration Rate 10.0L, Calcium Level 9.0, Phosphorus Level 5.0H, Albumin 2.6#L CBC/BMP Laboratory Tests 01/21/17 06:07 Red Blood Count 3.74 L, Mean Corpuscular Volume 96.5 H, Mean Corpuscular Hemoglobin 30.5, Mean Corpuscular Hemoglobin Concent 31.6 L, Red Cell Distribution Width 15.9 H, Anion Gap 9 Microbiology Microbiology 01/17/17 Blood Culture - Preliminary, Resulted No Growth after 72 hours. All specime... 01/17/17 Blood Culture - Preliminary, Resulted No Growth after 72 hours. All specime... 01/17/17 Respiratory Virus Panel (PCR) (TD) - Final, Complete Theresa Hitchcock MANAGER DESKTOP Jan 21, 2017 11:53
[2017-01-21] MEDS: ONDANSETRON 4 MG ORAL DISINTEGRATING TAB (S0181) PO PRN (13:12)
--- NOTE | 2017-01-21 15:41 | IPN ---
DATE: 01/20/2017 Mrs. Nelson is seen this morning on her bedside. She is feeling better. However, she is still weak and has difficulty walking. She did not feel that she was strong enough to go home. She denies any nausea or vomiting. Her epigastric and retrosternal pain has improved. PHYSICAL EXAMINATION: On physical examination, temperature 98.8 degrees Fahrenheit, heart rate 74 per minute and respiratory rate 18 per minute. Blood pressure 157/73 mmHg and oxygen saturation 97%. Head is atraumatic. Neck is supple and without jugular venous distention (JVD) or thyroid enlargement. Heart sounds are regular. Lungs with few basilar rales. Abdomen is soft and nontender and without a palpable organomegaly. Extremities have no cyanosis or clubbing. Right arm arteriovenous (AV) fistula is patent. Her lower extremity edema has almost completely resolved. Neurologically, she is awake, alert and oriented times three. Skin has no rash or ulcers. LABORATORY DATA: Today's laboratories show WBC count 11.1, hemoglobin 11.8 and hematocrit 37.5. Sodium 133 and potassium 5.3. BUN 77 and creatinine 5.71. Calcium 9.8 and phosphorus 5.2. PROBLEMS: 1. End-stage renal disease. The patient is going to be dialyzed today. Today is her regular dialysis day. She will complete her full treatment. 2. Hyperkalemia. This is mild and likely to correct with hemodialysis and no other intervention is indicated. 3. Anemia. Her anemia has been stable and does not need any intervention at this point. 4. Shortness of breath with pulmonary edema. Volume status remains well-compensated. We will try to remove about 2.5 liters of fluid today as tolerated. 5. Electrolytes. Most of the abnormalities in electrolytes are related to end-stage renal disease and they are all going to improve with hemodialysis. This includes hyperphosphatemia, hyperkalemia and hyponatremia. No other intervention will be indicated. 6. Generalized weakness and deconditioning. The patient is getting physical therapy and we will see how she does.
[2017-01-21] MEDS: PERCOCET 5MG/325MG TAB PO PRN (19:46)
[2017-01-21] MEDS: LISINOPRIL 10 MG TAB PO SCH (20:45)
--- NOTE | 2017-01-21 21:54 | IPN ---
DATE: 01/21/2017 Mrs. Nelson is seen this morning on her bedside. She is feeling well. However remains weak and has difficulty walking. She also gets short of breath on exertion. She denies any chest pain or abdominal pain. She has no nausea or vomiting. She has no fever or chills. She underwent hemodialysis yesterday which she tolerated very well and removed 3 liters of fluid without any problem. PHYSICAL EXAMINATION: Temperature 97.9 degrees Fahrenheit, heart rate 80 per minute and respiratory rate 16 per minute. Blood pressure 120/54 mmHg and oxygen saturation 93% on room air. Head is atraumatic. Neck is supple and without JVD or thyroid enlargement. Eyes, ears, nose and throat are unremarkable. Heart exam reveals regular S1 and S2. Lungs have diminished breath sounds at bases. There is no wheezing or rales. Abdomen soft and nontender and without a palpable organomegaly. Bowel sounds are normal. Extremities have no cyanosis or clubbing. Skin has no rash or ulcers. Neurologically she is awake, alert and oriented times three. LABORATORY DATA: WBC count is 10.1, hemoglobin 11.4 and hematocrit 36.1. Sodium 138 and potassium 4.7. BUN 53 and creatinine 4.44. Calcium 9.0 and phosphorus 5.0. PROBLEMS: 1. End-stage renal disease. The patient underwent hemodialysis yesterday which she tolerated very well. She will be scheduled for next dialysis tomorrow on 01/22/2017. 2. Shortness of breath with pulmonary edema. Volume status has corrected and she is at about her dry weight now. We will continue to manage her volume status with hemodialysis. Will try to remove about 2.0 liters of fluid with next hemodialysis tomorrow. 3. Hyperkalemia has corrected with dialysis now. No intervention is indicated. 4. Hyperphosphatemia. Phosphorus is at borderline now and we will continue with current phosphate binder. 5. Generalized weakness and deconditioning. The patient is being encouraged to be out of bed more often and continue participating with physical therapy. 6. Anemia. Her anemia is stable and does not need any intervention at this point.
[2017-01-21 22:00] VITALS: BP 147/67
[2017-01-22 06:00] VITALS: BP 148/72
[2017-01-22] MEDS: HEPARIN SOD (PORCINE) 5000 UNITS/ML VIAL SQ SCH ×2 (06:20→22:03)
[2017-01-22] MEDS: ASPIRIN 81 MG ENTERIC TAB PO SCH (06:20)
[2017-01-22] MEDS: VITAMIN D 1,000 INTERNATIONAL UNITS TABLET PO SCH (06:20)
[2017-01-22] MEDS: PERCOCET 5MG/325MG TAB PO PRN ×3 (06:21→19:51)
[2017-01-22] MEDS: guaiFENesin ER 600 MG TAB PO SCH ×2 (06:21→22:04)
[2017-01-22 06:33] LABS: MEAN CORPUSCULAR HGB CONC 30.9 g/dl (32.0-36.5); PLATELET COUNT, AUTOMATED 249 10^3/uL (150-450); RED CELL DISTRIBUTION WIDTH 16.1 % (11.5-14.5); WHITE BLOOD COUNT 9.3 10^3/uL (4.0-10.0)
[2017-01-22 07:06] LABS: CALCIUM LEVEL 9.7 MG/DL (8.8-10.2); CREATININE FOR GFR 6.19 MG/DL (0.55-1.02); GLOMERULAR FILTRATION RATE 6.8 (>32); PHOSPHORUS LEVEL 6.5 MG/DL (2.5-4.9)
[2017-01-22 07:10] LABS: POTASSIUM SERUM 5.7 MEQ/L (3.5-5.1)
--- NOTE | 2017-01-22 09:03 | IPNPDOC ---
Subjective Date Seen The patient was seen on 01/22/17. Subjective Chief Complaint/HPI The patient is a 87-year-old female admitted with a reason for visit of Esrd On Dialysis; Heart Failure. Events since last encounter Plan is for HD today. Mild progression with PT. Has been getting OOB more often. Objective Physical Examination General Exam: Positive: Alert, No Acute Distress ENT Exam: Positive: Atraumatic, Mucous membr. moist/pink, Pharynx Normal Neck Exam: Positive: Supple, Negative: JVD, thyromegaly Chest Exam: Positive: Clear to auscultation, Normal air movement Heart Exam: Positive: Rate Normal, Regular Rhythm, Normal S1, Normal S2, Negative: Murmurs, Rubs Abdomen Exam: Positive: Normal bowel sounds, Soft, Negative: Tenderness, Hepatospenomegaly Extremity Exam: Negative: Edema Assessment /Plan Problems (1) Pneumonitis Status: Acute Problem Text: Continue with PT to improve strengthening. Anticipated DC of 01/2901/20/17: symptoms resolved after dialysis and removal of 5500 ml fluids. Will stop prednisone and Meropenem. monitor. Anticipate DC home in am. Received 1 dose of IV solumedrol. Now on Prednisone 40 mg po daily. Monitor. Add on Mucinex. (2) End stage renal disease on dialysis Status: Chronic Problem Text: Nephrology following and managing HD needs. (3) Hypoxia Status: Acute Problem Text: wean off of oxygen keep sats 88-92% (4) Elevated brain natriuretic peptide (BNP) level Status: Acute Problem Text: CONCLUSIONS: 1. Study is of acceptable technical quality. 2. Normal left ventricular (LV) size, systolic function. Grade 1 diastolic dysfunction. 3. Degenerative abnormalities of aortic valve but without significant stenosis or insufficiency. 4. Degenerative abnormalities of mitral valve resulting in mild to moderate mitral insufficiency. 5. Unable to estimate pulmonary artery pressure but likely moderate pulmonary hypertension. EF 70% In presence of BLE edema. Echo ordered. Plan/VTE VTE Prophylaxis Ordered?: Yes (Heparin) Plan Therapy: PT VS, I&O, 24H, Fishbone Vital Signs/I&O Vital Signs Date Time Temp Pulse Resp B/P (MAP) Pulse Ox O2 Delivery O2 Flow Rate FiO2 01/22/17 06:51 18 01/22/17 06:00 98.8 70 148/72 (97) 97 Nasal Cannula 1.0 Laboratory Data 24H LABS Laboratory Tests 2 01/22/17 05:37: Nucleated Red Blood Cells % (auto) 0.0, Blood Urea Nitrogen 82#H, Creatinine 6.19H, Sodium Level 135L, Potassium Level 5.7H, Chloride Level 101, Carbon Dioxide Level 20L, Anion Gap 14, Glomerular Filtration Rate 6.8L, Calcium Level 9.7, Phosphorus Level 6.5#H, Albumin 3.0L CBC/BMP Laboratory Tests 01/22/17 05:37 Red Blood Count 4.03, Mean Corpuscular Volume 97.0 H, Mean Corpuscular Hemoglobin 30.0, Mean Corpuscular Hemoglobin Concent 30.9 L, Red Cell Distribution Width 16.1 H, Anion Gap 14 Microbiology Microbiology 01/17/17 Blood Culture - Preliminary, Resulted No Growth after 72 hours. All specime... 01/17/17 Blood Culture - Preliminary, Resulted No Growth after 72 hours. All specime... 01/17/17 Respiratory Virus Panel (PCR) (TD) - Final, Complete Theresa Hitchcock MEDICINE TEACHER Jan 22, 2017 09:03
[2017-01-22] MEDS: SEVELAMER HYDROCHLORIDE 400 MG PO SCH ×3 (09:31→17:38)
[2017-01-22] MEDS ORDERED: LIDOCAINE 1% SDV 5 ML VIAL SQ ONE (11:00)
[2017-01-22] MEDS ORDERED: HEPARIN 1,000 UNITS/ML 10ML VIAL (FOR RADIOLOGY& DIALYSIS ONLY) IV ONE ×2 (11:00)
[2017-01-22 16:00] VITALS: BP 126/56
--- NOTE | 2017-01-22 20:03 | IPN ---
DATE: 01/22/2017 Mrs. Nelson is seen this morning on her bedside. She is feeling better and denies any nausea or vomiting. She reports a good appetite. She does have some shortness of breath when she gets up and walks. She is currently using oxygen at 1 liter via nasal cannula. The patient has no fever or chills. She tells me that she did walk yesterday with the help of walker and physical therapist. She is anticipating going to home tomorrow. PHYSICAL EXAMINATION: Temperature 98.8 degrees Fahrenheit, heart rate 70 per minute and respiratory rate 18 per minute. Blood pressure 148/72 mmHg and oxygen saturation 97%. This morning her oxygen was down to 90% on room air. Her head is atraumatic. Neck is supple and without jugular venous distention (JVD) or thyroid enlargement. Ears, nose and throat are unremarkable. Heart exam reveals regular S1, S2 with systolic murmur, grade 1 x 6. Lungs have slightly diminished breath sounds at bases. Abdomen: Soft and nontender and bowel sounds are normal. Extremities have no cyanosis or clubbing. Musculoskeletal system shows no leg edema. Skin has no rash or ulcers. Neurologically she is awake, alert and oriented times three. Today's labs show WBC count 9.3, hemoglobin 12.1 and hematocrit 39. Sodium 135 and potassium 5.7. BUN 82 and creatinine 6.19. Calcium 9.7 and phosphorus 6.5. PROBLEMS: 1. End-stage renal disease. The patient is due for hemodialysis today and she will be dialyzed for her full treatment of 3-1/2 hours. 2. Hypoxemia. Probably she still has mild volume overload and will try to remove 3 liters of fluid today and monitor her after dialysis. I do not feel that at this point she needs home oxygen. 3. Hyperkalemia. This is related to end-stage renal disease. The patient will be dialyzed with 1.0 mEq potassium bath. That will correct her hyperkalemia. 4. Hyperphosphatemia. The patient has been intolerant of phosphate binders. He only take low-dose Renvela and is tolerating it well. We hope that with dialysis her phosphorus level will improve and we will also continue with the phosphate binders. 5. Anemia. Anemia is stable and improved. No intervention is indicated at this point. 6. Congestive heart failure. The patient did have an echocardiogram, which showed only mild diastolic dysfunction. Systolic function was normal and she does have some valvular sclerosis but no significant insufficiency. 7. DISPOSITION: The patient is likely to be ready for discharge tomorrow.
[2017-01-22 22:00] VITALS: BP 143/64
[2017-01-22 22:04] VITALS: BP 126/56
[2017-01-22] MEDS: LISINOPRIL 10 MG TAB PO SCH (22:04)
[2017-01-23] MEDS: ONDANSETRON 4 MG ORAL DISINTEGRATING TAB (S0181) PO PRN ×2 (00:57→12:35)
[2017-01-23 06:00] VITALS: BP 134/61
[2017-01-23 06:07] LABS: MEAN CORPUSCULAR HEMOGLOBIN 30.3 pg (27.0-33.0); MEAN CORPUSCULAR HGB CONC 32.2 g/dl (32.0-36.5); PLATELET COUNT, AUTOMATED 190 10^3/uL (150-450); RED CELL DISTRIBUTION WIDTH 16.3 % (11.5-14.5); WHITE BLOOD COUNT 9.4 10^3/uL (4.0-10.0)
[2017-01-23 06:31] LABS: ALBUMIN 2.8 GM/DL (3.2-5.2); CALCIUM LEVEL 9.1 MG/DL (8.8-10.2); CREATININE FOR GFR 4.29 MG/DL (0.55-1.02); GLOMERULAR FILTRATION RATE 10.4 (>32); PHOSPHORUS LEVEL 5.7 MG/DL (2.5-4.9); POTASSIUM SERUM 4.1 MEQ/L (3.5-5.1)
[2017-01-23] MEDS: HEPARIN SOD (PORCINE) 5000 UNITS/ML VIAL SQ SCH (08:46)
[2017-01-23] MEDS: SEVELAMER HYDROCHLORIDE 400 MG PO SCH ×3 (08:46→17:34)
[2017-01-23] MEDS: guaiFENesin ER 600 MG TAB PO SCH (08:46)
[2017-01-23] MEDS: VITAMIN D 1,000 INTERNATIONAL UNITS TABLET PO SCH (08:46)
[2017-01-23] MEDS: ASPIRIN 81 MG ENTERIC TAB PO SCH (08:46)
[2017-01-23] MEDS: PERCOCET 5MG/325MG TAB PO PRN ×2 (08:53→15:43)
[2017-01-23 14:00] VITALS: BP 116/58
--- NOTE | 2017-01-24 02:39 | IPN ---
DATE OF SERVICE: 01/23/2017 SUBJECTIVE: The patient is seen this morning at the bedside. She feels well. She is on room air. She states she ambulated 60 feet with physical therapy. She has discharge pending this afternoon. She tolerated hemodialysis yesterday without any reported issue with 2000 mL ultrafiltration. REVIEW OF SYSTEMS: Negative for fevers, chills, nausea, vomiting, chest pain, palpitations, shortness of breath, lower extremity swelling. Remainder of review of systems is negative. VITAL SIGNS: Temperature 98.1, pulse 73, respiratory rate 16, blood pressure 134/61, saturating 93% on room air. Intake and output: Oral intake yesterday was 470 mL, dialysis output 2000. Her oral intake is likely not fully recorded. She is in net negative fluid balance with a downtrending daily weight. Weight on the bed scale today 58.6 kg. PHYSICAL EXAMINATION: The patient is seen at the bedside. Her family member is present. She is in good spirits. Her extraocular muscles are intact. The neck is supple. There is no jugular venous distention. Mucous membranes are moist. S1, S2, 2+ radial pulse, no edema in the extremities. She is comfortable on room air. Symmetric air entry bilaterally. Abdomen is soft, nontender, bowel sounds are present. Extremities are without edema or cyanosis. Skin has no rash or ulcers. Neurologically, she is oriented times four. Appropriately interactive and conversational. Psychiatric: Normal mood and affect. LABORATORIES: White count 9.4, hemoglobin 11.7, platelets 190. Sodium 138, potassium 4.1, bicarbonate 27, BUN 45, phosphorus 5.7. INPATIENT MEDICATIONS: Reviewed by myself. No significant change from prior. ASSESSMENT AND PLAN: 1. End-stage renal disease on hemodialysis. The patient is well dialyzed. She tolerated her treatment yesterday with 2000 mL ultrafiltration. She is fairly euvolemic on exam. 2. Hypoxemia, improved. The patient is comfortable this morning on room air saturating about 93%. She reports she ambulated about 60 feet with physical therapy and felt well. 3. Anemia of chronic kidney disease. Patient's hemoglobin is at goal. 4. Secondary hyperparathyroidism. The patient continues on Renagel with meals and vitamin D. Her phosphorus is improved compared to yesterday, though slightly above goal. 5. Hypertension. Blood pressure is well controlled and she continues on lisinopril. DISPOSITION: The patient is cleared for discharge home to followup as an outpatient in the dialysis unit.
--- NOTE | 2017-01-24 15:31 | DSES ---
DATE OF ADMISSION: 01/17/2017 DATE OF DISCHARGE: 01/23/2017 DISCHARGE DIAGNOSES: 1. Respiratory failure. 2. Volume overload. 3. Congestive heart failure, acute, secondary to diastolic dysfunction. 4. End-stage renal disease on hemodialysis. 5. Hypertension. 6. Anemia. 7. Hyperparathyroidism. 8. Deconditioning. HOSPITAL COURSE: The patient was admitted with generalized weakness and dyspnea over the preceding 2-3 days prior to admission with intermittent substernal chest pain. She was empirically initially treated with imipenem, but after hemodialysis removal of 5.5 liters of fluid with two dialysis treatments, her dyspnea was back to baseline, and it was felt her dyspnea was solely related to volume overload. Therefore, the antibiotics were discontinued. Blood cultures times two on admission showed no growth. Respiratory panel was negative. Lower extremity vascular ultrasound showed no evidence of deep venous thrombosis (DVT). Chest x-ray showed interstitial infiltrate bilateral, and transthoracic echocardiogram (TTE) read by Dr. West on 01/19/2017, was consistent with grade one diastolic dysfunction, mild to moderate mitral regurgitation (MR), moderate pulmonary hypertension. Prior to discharge, the patient was felt to be safe by physical therapy (PT). The patient was discharged to home at [facility] on her baseline home regimen. There were no changes made to her medication list. This is the same as her admission history and physical (H and P) and she is to followup with Dr. Rodríguez for repeat hemodialysis on 01/25/2017. She had hemodialysis last on 01/22/2017. She will followup with her primary care provider (PCP) in one week.
== END 2017-01-23 17:41 | disposition home or self-care (01) | DRG 291 ==
LOC: M ED 11:54 → M ED INP 16:35 → M MSPAV 01-18 00:17
PROVIDERS: ADMIT Family Medicine; ATTEND Family Medicine
DX: I13.2 Hypertensive heart and chronic kidney disease with heart failure and with stage 5 chronic kidney disease, or end stage renal disease (principal); N18.6 End stage renal disease; I50.33 Acute on chronic diastolic (congestive) heart failure; J96.90 Respiratory failure, unspecified, unspecified whether with hypoxia or hypercapnia; J18.9 Pneumonia, unspecified organism; E87.2 Acidosis; E87.1 Hypo-osmolality and hyponatremia; D63.1 Anemia in chronic kidney disease; E21.3 Hyperparathyroidism, unspecified; I34.0 Nonrheumatic mitral (valve) insufficiency; I27.20 Pulmonary hypertension, unspecified; K57.30 Diverticulosis of large intestine without perforation or abscess without bleeding; K58.8 Other irritable bowel syndrome; M48.061 Spinal stenosis, lumbar region without neurogenic claudication; Z79.899 Other long term (current) drug therapy; Z79.82 Long term (current) use of aspirin; Z88.5 Allergy status to narcotic agent; Z88.8 Allergy status to other drugs, medicaments and biological substances; Z88.2 Allergy status to sulfonamides; Z87.891 Personal history of nicotine dependence; I77.0 Arteriovenous fistula, acquired; E87.5 Hyperkalemia; E83.39 Other disorders of phosphorus metabolism